=== PATIENT | male | born 1995 | race Caucasian/White ===

== ENCOUNTER 2017-04-25 06:50 | Emergency (ER) | payer BC ==
--- NOTE | 2017-04-25 07:07 | ER Document Report ---
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 His mom Shama Rodrigues [phone] is coming from [place] today, she told [employer] that he has been manic for weeks and suicide ideation. Obvious forced speech, anxious, fast movements. [employer] was involved because there was a report that a male had a weapon, but he did not. Also noting OCD behavior. Will IVC him, spoke with Dr. Pitts TRAVEL OUTSIDE OF THE [place] IN LAST 30 DAYS: No - Related Data Allergies/Adverse Reactions: No Known Allergies Allergy (Unverified 04/25/17 07:01) Home Medications: Current Home Medications No Home Medications 04/25/17 [History] Past Medical History - General Information source: Patient - Social History Smoking Status: Current Every Day Smoker Frequency of alcohol use: Rare Drug Abuse: Marijuana Lives with: Homeless Family History: Reviewed & Not Pertinent Patient has suicidal ideation: No Patient has homicidal ideation: No - Medical History Medical History: Negative Renal/ Medical History: Denies: Hx Peritoneal Dialysis Past Surgical History: Reports: Hx Orthopedic Surgery - left shoulder stabilized surgery - Immunizations Immunizations up to date: Yes Review of Systems - Review of Systems Constitutional: No symptoms reported EENT: No symptoms reported Cardiovascular: No symptoms reported Respiratory: No symptoms reported Gastrointestinal: No symptoms reported Genitourinary: No symptoms reported Male Genitourinary: No symptoms reported Musculoskeletal: No symptoms reported Skin: No symptoms reported Hematologic/Lymphatic: No symptoms reported Neurological/Psychological: See HPI Physical Exam - Vital signs Vitals: Temp Pulse Resp BP Pulse Ox 98.1 F 76 18 145/117 H 100 04/25/17 06:56 04/25/17 06:56 04/25/17 06:56 04/25/17 06:56 04/25/17 06:56 Interpretation: Normal - General General appearance: Appears well, Alert, Anxious In distress: None - HEENT Head: Normocephalic, Atraumatic Eyes: Normal Pupils: PERRL Tympanic membrane: Normal Mucous membranes: Normal Pharynx: Normal Neck: Supple. No: Lymphadenopathy - Respiratory Respiratory status: No respiratory distress Chest status: Nontender Breath sounds: Normal Chest palpation: Normal - Cardiovascular Rhythm: Regular Heart sounds: Normal auscultation Murmur: No - Abdominal Inspection: Normal Distension: No distension Bowel sounds: Normal Tenderness: Nontender Organomegaly: No organomegaly - Back Back: Normal, Nontender - Extremities General upper extremity: Normal inspection, Nontender, Normal color, Normal ROM , Normal temperature General lower extremity: Normal inspection, Nontender, Normal color, Normal ROM , Normal temperature, Normal weight bearing. No: Gary's sign - Neurological Neuro grossly intact: Yes Cognition: Normal Orientation: AAOx4 [place] Coma Scale Eye Opening: Spontaneous Adam Coma Scale Verbal: Oriented Adam Coma Scale Motor: Obeys Commands [place] Coma Scale Total: 15 Speech: Normal Motor strength normal: LUE, RUE, LLE, RLE Sensory: Normal - Psychological Associated symptoms: Agitated, Anxious, Manic - Skin Skin Temperature: Warm Skin Moisture: Dry Skin Color: Normal Course - Re-evaluation Re-evalutation: 04/25/17 07:[address] pitts. urine is dark- will have drink PO fluid. 04/25/17 11:35 pt fell asleep with the meds given, dr. garcia rec. Zyprexa 5mg I po BID, and Cogentin 1 mg daily. EKG NSR. QT 376. 04/25/17 14:31 04/25/17 14:33 labs positive marijuana, others OK> 04/25/17 16:10 dr Hanley from [facility] accepts the pt to the faciltiy per Leandra Carranza who spoke with Tova BOURGEOIS at [facility]. Pt vitals stable, shook his hand, willing to go with the [facility] for inpatient treatment. Dr lópez OK'd the transfer, pt is stable for transfer, Vitals stable. 04/25/17 16:12 - Vital Signs Vital signs: Temp Pulse Resp BP Pulse Ox 97.5 F 75 18 123/60 99 04/25/17 15:50 04/25/17 15:50 04/25/17 15:50 04/25/17 15:50 04/25/17 15:50 - Laboratory Result Diagrams: 04/25/17 07:31 04/25/17 07:31 Laboratory results interpreted by me: 04/25/17 04/25/17 04/25/17 07:31 07:31 07:41 WBC 11.9 H Total Bilirubin 1.4 H Urine Protein 100 H Urine Ketones 20 H Urine Urobilinogen 2.0 H Salicylates < 1.0 L Acetaminophen < 10 L Discharge - Discharge Clinical Impression: Mariza Condition: Stable Disposition: PSYCH HOSP/UNIT
[2017-04-25] MEDS ORDERED: LORAZEPAM 1 MG TABLET PO ONE (07:23)
[2017-04-25] MEDS ORDERED: HALOPERIDOL 5 MG TABLET PO ONE (07:23)
[2017-04-25] MEDS ORDERED: DIPHENHYDRAMINE HCL 50 MG CAPSULE PO ONE (07:23)
[2017-04-25 07:47] LABS: ABSOLUTE EOSINOPHILS # (AUTO) 0.1 10^3/uL (0.0-0.6); ABSOLUTE LYMPHOCYTES (AUTO) 2.9 10^3/uL (0.5-4.7); ABSOLUTE MONOCYTES (AUTO) 0.9 10^3/uL (0.1-1.4); BASOPHILS % (AUTO) 0.2 % (0-2); EOSINOPHILS % (AUTO) 0.5 % (0-6); HEMATOCRIT 43.9 % (37.9-51.0); HEMOGLOBIN 15.1 g/dL (13.5-17.0); HGB HCT DIFFERENCE 1.4; LYMPHOCYTES % (AUTO) 24.1 % (13-45); MEAN CORPUSCULAR HEMOGLOBIN 29.7 pg (27.0-33.4); MEAN CORPUSCULAR HGB CONC 34.3 g/dL (32.0-36.0); MEAN CORPUSCULAR VOLUME 87 fl (80-97); MONOCYTES % (AUTO) 7.4 % (3-13); RED BLOOD COUNT 5.07 10^6/uL (4.35-5.55); RED CELL DISTRIBUTION WIDTH 13.1 % (11.5-14.0); SEGMENTED NEUTROPHILS % (AUTO) 67.8 % (42-78); WHITE BLOOD COUNT 11.9 10^3/uL (4.0-10.5)
[2017-04-25 07:59] LABS: APPEARANCE,URINE SLIGHTLY-CLOUDY; BILIRUBIN,URINE NEGATIVE (NEGATIVE); GLUCOSE, URINE NEGATIVE (NEGATIVE); KETONES,URINE 20 mg/dL (NEGATIVE); LEUKOCYTE ESTERASE,URINE NEGATIVE (NEGATIVE); NITRITE,URINE NEGATIVE (NEGATIVE); PROTEIN,URINE 100 mg/dL (NEGATIVE)
[2017-04-25 08:00] LABS: ALANINE AMINOTRANSFERASE 35 U/L (21-72); ALKALINE PHOSPHATASE 95 U/L (38-126); ANION GAP 16 (5-19); ASPARTATE AMINO TRANSFERASE 23 U/L (17-59); BILIRUBIN,DIRECT 0.4 mg/dL (0.0-0.4); BILIRUBIN,TOTAL 1.4 mg/dL (0.2-1.3); BLOOD UREA NITROGEN 12 mg/dL (7-20); CALCIUM 10.2 mg/dL (8.4-10.2); CARBON DIOXIDE 25 mmol/L (22-30); CHLORIDE 103 mmol/L (98-107); CREATININE RESULT 1.06 mg/dL (0.52-1.25); GLUCOSE 99 mg/dL (75-110); POTASSIUM 4.1 mmol/L (3.6-5.0); SODIUM 144.1 mmol/L (137-145); TOTAL PROTEIN 8.1 g/dL (6.3-8.2)
[2017-04-25 08:01] LABS: ALCOHOL < 10 mg/dL (NONE DETECTED)
[2017-04-25 08:14] LABS: URINE BARBITURATES SCREEN NEGATIVE; URINE OPIATES LOW NEGATIVE; URINE PHENCYCLIDINE SCREEN NEGATIVE
[2017-04-25 08:57] LABS: URINE METHADONE SCREEN NEGATIVE
--- NOTE | 2017-04-25 09:46 | PSYCHOLOGICAL NOTE ---
Psych Note - Psych Note Psych Note: pt brought in with police and [employer] after pt was reported to be breaching security barriers to get onto [employer]. 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 Pt states that he is Pt denies any homicidal ideation and states that he dosnt want to hurt himself and that would like some sleep because he hasnt slept in 7 days. Pt is verbally accelerated and cooperative with staff. [employer], Trevon Gunter [phone], reported the patient was initially sought because he was making homicidal threats. Patient had reportedly disclosed that he had a gun in his possession however it was found that he did not have any gun and disposition. He states the patient is a danger to himself. He provided the patient's mother's contact information clear Ravi at . Patient has been from [place] [employer] 30 days and no longer has coverage. Clinician observes patient talking with [facility] staff, pressured speech, flight of thought with some delusions of grandeur. Patient was administered medication and is now currently sleeping. Evaluation will continue. 296.80 (F31.9) unspecified bipolar; manic episode Patient was [facility] to [facility]; transportation will occur today.
--- NOTE | 2017-04-25 10:32 | EKG REPORT ---
SEVERITY:- OTHERWISE NORMAL ECG - SINUS ARRHYTHMIA, RATE [id number] : Confirmed by: Trinity Mancia 25-Apr-2017 10:31:13
[2017-04-25 16:54] VITALS: BP 123/60
[2017-04-25] MEDS ORDERED: OLANZAPINE 5 MG TABLET PO SCH (18:00)
[2017-04-25] MEDS ORDERED: BENZTROPINE MESYLATE 1 MG TABLET PO SCH (22:00)
== END 2017-04-25 16:57 ==
LOC: ER 06:50
DX: F30.9 Manic episode, unspecified (principal); F41.9 Anxiety disorder, unspecified; R39.89 Other symptoms and signs involving the genitourinary system; F17.200 Nicotine dependence, unspecified, uncomplicated; Z59.0 Homelessness; Z72.820 Sleep deprivation
CPT/HCPCS: 36415; 80053; 80307; 81001; 85025; 93005; 93010; 99285